=== PATIENT | female | born 1935 | race Caucasian/White ===

== ENCOUNTER → 2019-10-05 09:06 | Outpatient (CLI) | payer MEDICARE, SELFPAY ==
--- NOTE | 2019-10-05 | DI.RAD.S_ITS ---
PROCEDURE: XR KNEE LT 3V INDICATIONS: LEFT KNEE PAIN TECHNIQUE: 3 views of the knee were acquired. COMPARISON: None. FINDINGS: Bones: No fractures or dislocations. No suspicious bony lesions. The femorotibial joint spaces are relatively well-preserved on this nonweightbearing study. On the sunrise view, there is moderate lateral patellofemoral joint space narrowing seen. Osteophyte formation can be seen along the margins of the patella. Soft tissues: No significant joint effusion. No suspicious soft tissue calcifications. Atherosclerotic calcification is noted. IMPRESSION: Focal degenerative change is seen involving the lateral patellofemoral compartment. If there is strong clinical suspicion for internal derangement of the knee, please consider a dedicated MRI for further evaluation (assuming that there is no contraindication to MRI). Dictated by: Cayden Alvarado M.D. on 10/05/2019 at 9:00 Approved by: Cayden Alvarado M.D. on 10/05/2019 at 9:01
== END ==
PROVIDERS: PCP Internal Medicine; Referring Provider Physician Assistant Medical; Visit Provider Physician Assistant Medical
DX: M25.562 Pain in left knee (principal)
CPT/HCPCS: 73562

== ENCOUNTER → 2021-09-18 09:12 | Outpatient (CLI) | payer MEDICARE, SELFPAY ==
--- NOTE | 2021-09-18 09:16 | DI.RAD.S_ITS ---
PROCEDURE: XR LUMBAR SPINE 2-3V INDICATIONS: low back pain TECHNIQUE: 3 views of the lumbar spine were acquired. COMPARISON: None. FINDINGS: Bones: There are 5 [id number] lumbar vertebral bodies. Compression deformities are present at L1 and L2 with approximately 40 and 30% vertebral body height loss, respectively. There is 4 mm anterolisthesis at L3-4 and 8 mm anterolisthesis at L4-5. Severe degenerative changes including intervertebral disc space narrowing, endplate sclerosis, osteophytosis and severe facet sclerosis are present throughout the lumbar spine. Soft tissues: Dense atheromatous calcifications are present within the abdominal aorta. IMPRESSION: 1. Compression deformities at L1 and L2, the acuity of which are unknown without prior studies. 2. 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 3. Anterolisthesis at L4-5 and L3-4. 4. Dense aortic atherosclerosis. Dictated by: Jacki Smith M.D. on 09/18/2021 at 11:24 Approved by: Jacki Smith M.D. on 09/18/2021 at 11:25
== END ==
PROVIDERS: PCP Internal Medicine; Referring Provider Student in an Organized Health Care Education/Training Program; Visit Provider Student in an Organized Health Care Education/Training Program
DX: M47.816 Spondylosis without myelopathy or radiculopathy, lumbar region (principal); M43.16 Spondylolisthesis, lumbar region; I70.0 Atherosclerosis of aorta; M54.50 Low back pain, unspecified
CPT/HCPCS: 72100

== ENCOUNTER → 2021-12-05 10:42 | Outpatient (CLI) | payer MEDICARE, SELFPAY ==
--- NOTE | 2021-12-05 10:45 | DI.RAD.S_ITS ---
PROCEDURE: XR DEXA AXIAL SKELETON INDICATIONS: OSTEOPOROSIS SCREENING COMPARISON: None. FINDINGS: This blank DEXA report has been sent in error by the PACS system. The correct and complete report will be forthcoming in 1-2 days. Thank you for your patience and understanding. Dictated by: Bakari Yancey M.D. on 12/05/2021 at 16:29 Approved by: Bakari Yancey M.D. on 12/05/2021 at 16:34
== END ==
PROVIDERS: PCP Internal Medicine; Referring Provider Student in an Organized Health Care Education/Training Program; Visit Provider Student in an Organized Health Care Education/Training Program
DX: Z13.820 Encounter for screening for osteoporosis (principal); M85.851 Other specified disorders of bone density and structure, right thigh; M85.852 Other specified disorders of bone density and structure, left thigh; Z78.0 Asymptomatic menopausal state
CPT/HCPCS: 77080

== ENCOUNTER → 2022-03-18 08:52 | Outpatient (CLI) | payer MEDICARE, SELFPAY ==
--- NOTE | 2022-03-18 08:54 | DI.ECHO.S_ITS ---
[facility]---------+ [facility] +---------+ : : [address] : [place] : : : : [id number] : : : : Phone: [phone]---------+ Echocardiogram Report + + :Name: ANDI DANIEL Study Date: 03/18/2022 Height: 61 in : :[facility] ReadingLocation: Weight: 150 lb : : Gender: Female BSA: 1.7 m2 : :: 1935 Age: 86 yrs BP: 116/73 mmHg: :Reason For Study: Mitral Valve- Regurgitation : :Ordering Physician: BRIAN, : :GLORIA Performed By: Boaz Quezada : :Referring: GLORIA TORRES : + + Interpretation Summary The ejection fraction is estimated to be 50-55%. There is mild to moderate mitral regurgitation. There is mild aortic valve sclerosis. There is mild tricuspid regurgitation. The right ventricular systolic pressure is estimated to be at least 26 mmHg based on an estimated right atrial pressure of 3 mm Hg. Procedure: A two-dimensional transthoracic echocardiogram with color flow and Doppler was performed. The study quality was technically adequate. There is no prior echocardiogram noted for this patient. The patient was in normal sinus rhythm during the exam. Left Ventricle: The left ventricle is normal in size and wall thickness. The ejection fraction is estimated to be 50-55%. There are no focal wall motion abnormalities. Diastolic parameters suggest a pseudonormalization pattern, consistent with probable elevated filling pressures. Right Ventricle: The right ventricle is normal in size and function. Atria: The left atrium is mildly dilated. Right atrial size is normal. The interatrial septum grossly appears intact with no obvious evidence for an atrial septal defect. Mitral Valve: There is mild mitral annular calcification. There is mild to moderate mitral regurgitation. Aortic Valve: There is mild aortic valve sclerosis. There is trace aortic regurgitation. Tricuspid Valve: The tricuspid valve is normal in structure and function. There is mild tricuspid regurgitation. The right ventricular systolic pressure is estimated to be at least 26 mmHg based on an estimated right atrial pressure of 3 mm Hg. Pulmonic Valve: The pulmonic valve is normal in structure and function. There is mild pulmonic regurgitation. Great Vessels: The aortic root is normal size. There is aortic root sclerosis/calcification. The dimensions of the ascending aorta are normal. The IVC is of normal diameter and collapses greater than 50% with a sniff. This suggests a low right atrial pressure of 3 mm Hg. Pericardium/ Pleura There is no pericardial effusion. There is no pleural effusion. MMode/2D Measurements & Calculations LVIDd: 4.8 cm LVOT diam: 2.0 cm LVIDs: 3.3 cm Ao root diam: 2.6 cm FS: 31.3 % asc Aorta Diam: 3.1 cm IVSd: 1.1 cm LVPWd: 1.1 cm LV zapata. diameter/BSA (cm/m^2): 2.9 LV sys. diameter/BSA (cm/m^2): 2.0 LA dimension: 3.7 cm RA long axis: 5.5 cm LA A2 area: 20.3 cm2 LA A4 area: 22.4 cm2 LA length (vol): 5.7 cm LA vol: 67.6 ml LA vol index: 40.4 ml/m2 LVLs ap4: 5.2 cm LVLd ap2: 6.0 cm LVLs ap2: 5.5 cm TAPSE_phl: 1.8 cm Doppler Measurements & Calculations Ao V2 max: 172.0 cm/sec LVOT Max Alfonso: 98.6 cm/sec Ao V2 mean: 124.0 cm/sec LV V1 max P.9 mmHg Ao max P.0 mmHg LV V1 VTI: 24.1 cm Ao mean P.0 mmHg SEUN(I,D): 1.9 cm2 Ao V2 VTI: 39.8 cm SEUN(V,D): 1.8 cm2 sev ratio: 0.61 SEUN indexed to BSA (cm^2/m^2): 1.1 MV E max alfonso: 87.0 cm/sec TR max alfonso: 239.0 cm/sec MV A max alfonso: 61.3 cm/sec TR max P.1 mmHg MV E/A: 1.4 Med Peak E' Alfonso: 4.4 cm/sec E/E' med: 20.0 Lat Peak E' Alfonso: 9.6 cm/sec E/E' lat: 9.1 E/e' average: 14.5 MV dec time: 0.20 sec SV(LVOT): 75.7 ml AV VR_phl: 0.57 SEUN(VTI)/BSA_phl: 1.1 MV P1/2t-pr_phl: 59.0 msec Reading Physician:11:24 AM
== END ==
PROVIDERS: PCP Internal Medicine; Referring Provider Internal Medicine; Visit Provider Internal Medicine
DX: I08.3 Combined rheumatic disorders of mitral, aortic and tricuspid valves (principal)
CPT/HCPCS: 93306

== ENCOUNTER → 2024-11-03 11:29 | Outpatient (CLI) | payer MEDICARE, SELFPAY ==
--- NOTE | 2024-11-03 11:34 | DI.US.S_ITS ---
PROCEDURE: US ABDOMEN LIMITED INDICATIONS: TWO SKIN LUMPS TECHNIQUE: Real-time scanning was performed of the back, with image documentation. COMPARISON: None. FINDINGS: Right back soft tissue lesion measures 5.8 x 5.1 x 1.3 cm. Right flank soft tissue lesion measures 4.2 x 3.6 x 1.4 cm. The lesions appear subcutaneous and are heterogeneous hypoechoic. There is internal vascularity. The lesions are lobular in appearance. Overlying skin is thickened. No fluid collection is seen. IMPRESSION: Right back and flank soft tissue lesions measuring 5.8 cm and 4.2 cm. The lesions are lobular with internal blood flow. Dr. Herron evaluated the lesions on the skin. The abnormalities are firm without associated erythema or ecchymosis. Concern for malignancy such as sarcoma. -Recommend biopsy. Ultrasound guidance could be utilized if desired. Dictated by: Petr Herron M.D. on 11/04/2024 at 12:29 Approved by: Petr Herron M.D. on 11/04/2024 at 12:34
--- NOTE | 2024-11-03 11:34 | DI.RAD.S_ITS ---
PROCEDURE: XR CHEST 2V INDICATIONS: SWELLING TECHNIQUE: 2 views of the chest were acquired. COMPARISON: None. FINDINGS: Heart, mediastinum and pulmonary vascular: Heart is mildly enlarged.. Mediastinum is unremarkable. Pulmonary vascular is normal. Lungs: A 2.5 cm nodule is present present the right lung apex . Mild interstitial disease throughout both lungs is of uncertain chronicity and etiology. Possible superimposed focal infiltrate posterior right lower lobe. The posterior right hemidiaphragm is silhouette on the lateral view . Pleural spaces: Normal-no effusions or pneumothorax. Bones and soft tissues: Sternotomy changes noted. 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 Suggest chest CT. Diffuse interstitial disease of uncertain etiology and chronicity. Chest CT would also be helpful for better assessment. Possible developing focal infiltrate posterior right lower lobe Dictated by: David Chauhan M.D. on 11/04/2024 at 12:37 Approved by: David Chauhan M.D. on 11/04/2024 at 12:39
== END ==
LOC: US 11:31
PROVIDERS: PCP Internal Medicine; Referring Provider Student in an Organized Health Care Education/Training Program; Visit Provider Student in an Organized Health Care Education/Training Program
DX: J84.9 Interstitial pulmonary disease, unspecified (principal); M51.34 Other intervertebral disc degeneration, thoracic region; R22.2 Localized swelling, mass and lump, trunk; R07.81 Pleurodynia; R91.1 Solitary pulmonary nodule
CPT/HCPCS: 71046; 76705